=== PATIENT | male | born 1985 | race Caucasian/White ===

== ENCOUNTER 2016-12-20 16:36 | Inpatient (IN) | payer BC, OTHER ==
[~2016-12-20] VITALS: Ht 185.4 cm; Wt 71.2 kg
[2016-12-21] MEDS ORDERED: diphenhydrAMINE 50 MG CAPSULE PO PRN (00:30)
[2016-12-21] MEDS ORDERED: CLONIDINE HCL 0.1 MG TABLET PO PRN (00:30)
[2016-12-21] MEDS ORDERED: MIRALAX 17 GM POWD.PACK PO PRN (00:30)
[2016-12-21] MEDS ORDERED: ONDANSETRON ODT 4 MG TAB.RAPDIS SL PRN (00:30)
[2016-12-21] MEDS ORDERED: ONDANSETRON 4 MG/2 ML VIAL IM PRN (00:30)
[2016-12-21] MEDS ORDERED: HYDROXYZINE PAMOATE 25 MG CAPSULE PO PRN (00:30)
[2016-12-21] MEDS ORDERED: BUPRENORPHINE HCL 2 MG TAB.SUBL SL PRN (00:30)
[2016-12-21] MEDS ORDERED: ACETAMINOPHEN 325 MG TABLET PO PRN (00:30)
[2016-12-21] MEDS ORDERED: DICYCLOMINE HCL 20 MG TABLET PO PRN (00:30)
[2016-12-21] MEDS ORDERED: LOPERAMIDE HCL 2 MG CAPSULE PO PRN ×2 (00:30)
[2016-12-21] MEDS ORDERED: MAG HYDROX/AL HYDROX/SIMETH 30 ML LIQUID UDC PO PRN (00:30)
[2016-12-21] MEDS ORDERED: [UNRECOGNIZED DRUG - OTHER] PO (01:28)
[2016-12-21] MEDS ORDERED: ASCO-382 PO (01:28)
[2016-12-21] MEDS ORDERED: OMEG-11 PO (01:28)
[2016-12-21] MEDS ORDERED: CHOL500062 PO (01:28)
[2016-12-21] MEDS ORDERED: [UNRECOGNIZED DRUG - CODE] PO (01:28)
--- NOTE | 2016-12-21 01:40 | NUR ---
PRE-ADMISSION NOTE : Pt. is 31 years old came to [facility] for Heroin, Methamphetamine, Xanax dependency. Pt. reports Haldol allergy, is on Regular diet, Full Code; Pt. was able to provide urine drug screen in Intake Office. VITAL SIGNS : CY=495/77, HR=92/min, Temp=98.0, RR=16 , breathing unlabored and even, SpO2=98% with RA, COWS=9, CIWA=15, Bznepl=[id number], Height=61. Pt. complains of increased level of anxiety= 4/10, confirms audio and visual hallucination, No SI/HI at this moment., Skin is dry, warm and intact, last BM on 12/20/2016. Pt. also was evaluated by Torey, Charge Nurse and will be accepted to the Unit.
[2016-12-21] MEDS ORDERED: SULF1TAB48 PO (01:42)
[2016-12-21] MEDS ORDERED: SAW/1TAB2 PO (01:42)
[2016-12-21] MEDS ORDERED: TURM1POW PO (01:42)
[2016-12-21] MEDS ORDERED: MEGA B COMPLEX (01:42)
[2016-12-21] MEDS ORDERED: [UNRECOGNIZED DRUG - OTHER] PO (01:42)
[2016-12-21] MEDS ORDERED: [UNRECOGNIZED DRUG - CODE] TP (01:42)
[2016-12-21] MEDS ORDERED: LYSI100013 PO (01:42)
[2016-12-21] MEDS: LORAZEPAM 1 MG TABLET PO PRN ×2 (02:00→06:11)
--- NOTE | 2016-12-21 02:00 | NUR ---
PRN ATIVAN Pt.s CIWA=15. PRN ATIVAN given as ordered. Safety measures in place : bed on lowest position with side rails x2 up for safety, call light within reach. Will continue to monitor closely and offer help.
[2016-12-21] MEDS ORDERED: LORAZEPAM 1 MG TABLET ONE ×2 (02:10→06:20)
--- NOTE | 2016-12-21 02:35 | NUR ---
ADMISSION NOTE : Pt. is 31 years old male admitted on 12/21/2016 at 01:45 for Heroin, Methamphetamine, Xanax dependency. Pt. reports no Primary Care Provider at this moment, Haldol allergy, is on Regular diet, Full Code; Pt. was able to provide urine drug screen in Intake Office. Pt. stated to be in assisted x10, arrested x15 in the past, no hospitalizations within past 30 days, history of falls within past 12 months. Pt. is oriented to the unit and his room, encouraged to notify staff with any concerns. Home medication reconciled. Upon admission YW=199/77, HR=92/min, Temp=98.0, RR=16 , breathing unlabored and even, SpO2=98% with RA, COWS=9, CIWA=15, one time order Ativan 2mg given as ordered. Rtodqc=[id number], Height=61. Pt. complains of increased level of anxiety= 4/10, confirms audio and visual hallucination, No SI/HI at this moment., Skin is dry, warm and intact, last BM on 12/20/2016. Education provided on Hep.C, Drugs overdose, seizures, smoking. Safety measures in place : bed on lowest position with side rails x2 up for safety, call light within reach. Will continue to monitor closely and offer help. Substance Abuse History is as follow : 1.Heroin 2gm QD IV last 4 months, last dose used on 12/20/2016, using Heroin since 1999. 2.Methamphetamine 3gm smoking/last 3 months, last dose on 12/20/2016, using since 2013. 3.Xanax 4mg QD PO last 5 months, last use on 12/16/2016. Using Xanax since 2001. 4.Tobacco 10 cigarettes QD since 2001, last use on 12/20/2016 Pt. occasionally takes Temazepam as substitute for Xanax. Pt. occasionally smokes Marijuana x1-2/week. Past Medical History : Multiple visual and audio hallucinations , multiple psychoses, Anxiety, Depression, Panic Disorder, Bipolar, passive SI , seizures history , was in [facility] in 2009, see PC notes (pt. explains his seizures convulsions because of low blood pressure ). 1990- left elbow fracture 1992- right elbow fracture 2002- right par ocular skull fracture Tx History : x12 Detox. facilities x6 Rehab. Facilities Family History : ETOH abuse - mother and sister. Cocaine, PCP, Ecstasy abuse - sister
--- NOTE | 2016-12-21 03:00 | NUR ---
REASSESSMENT ATSHAI Pt. is able to rest quietly in his room , RR=16 unlabored and even. Safety measures in place : bed on lowest position with side rails x2 up for safety, call light within reach. Will continue to monitor closely and offer help.
[2016-12-21 03:20] LABS: *AMPHETAMINE, URINE POSITIVE (NEGATIVE); *BARBITURATE, URINE NEGATIVE (NEGATIVE); *CANNABINOID, URINE POSITIVE (NEGATIVE); *COCCAINE, URINE NEGATIVE (NEGATIVE); *OPIATE, URINE POSITIVE (NEGATIVE); *PHENCYCLIDINE SCREEN,URINE NEGATIVE (NEGATIVE)
[2016-12-21 04:00] VITALS: BP 110/78
--- NOTE | 2016-12-21 06:33 | NUR ---
END OF SHIFT NOTE : Pt. is 31 years old male admitted on 12/21/2016 at 01:45 for Heroin, Methamphetamine, Xanax dependency. Pt. reports no Primary Care Provider at this moment, Haldol allergy, is on Regular diet, Full Code. Past Medical History : Multiple visual and audio hallucinations , multiple psychoses, Anxiety, Depression, Panic Disorder, Bipolar, passive SI , seizures history , was in [facility] in 2009, see PC notes (pt. explains his seizures convulsions because of low blood pressure ) ,1990- left elbow fracture , 1992- right elbow fracture , 2002- right par ocular skull fracture. Pt. complains of increased level of anxiety= 4/10, confirms audio and visual hallucination, No SI/HI at this moment. Pt remains compliant with the treatment plan. PRN ATIVAN given during my shift. V/S remain WNL. RR=16, even and unlabored, lungs clear upon auscultation, abdomen soft and non- distended. Pt denies nausea, vomiting and diarrhea. LAST CIWA= 15 ,COWS= 9 at 0400 , SEFKXV=137 ml, voided x1 , slept 0 hours. Safety measures in place : bed on lowest position with side rails x2 up for safety, call light within reach. Will continue to monitor closely and offer help.
[2016-12-21 07:00] LABS: BASOPHILS % (AUTO) 0.6 % (0.0-2.0); EOSINOPHILS # (AUTO) 0.1 K/uL (0.0-0.7); EOSINOPHILS % (AUTO) 1.4 % (0.0-7.0); HEMATOCRIT 38.9 % (40-50); HEMOGLOBIN 13.1 G/DL (14.0-18.0); LYMPHOCYTES # (AUTO) 2.1 K/UL (0.8-4.8); LYMPHOCYTES % (AUTO) 28.9 % (20.5-51.5); MEAN CORPUSCULAR HEMOGLOBIN 29.7 UUG (27.0-31.0); MEAN CORPUSCULAR HGB CONC 34 g/dL (32.0-37.0); MEAN CORPUSCULAR VOLUME 88.5 FL (82.0-92.0); MONOCYTES # (AUTO) 0.8 K/UL (0.1-1.30); MONOCYTES % (AUTO) 10.6 % (0.0-11.0); NEUTROPHILS # (AUTO) 4.2 K/UL (1.8-8.9); NEUTROPHILS % (AUTO) 58.5 % (38.5-71.5); PLATELET COUNT (AUTO) 277 K/UL (150-450); WHITE BLOOD COUNT (AUTO) 7.2 K/UL (4.0-11.2)
[2016-12-21 07:16] LABS: BILIRUBIN,TOTAL 0.3 mg/dL (0.2-1.0); CREATININE 1.1 mg/dL (0.6-1.3); MAGNESIUM 1.7 mg/dL (1.8-2.4); POTASSIUM 4.5 mmol/L (3.5-5.1); TOTAL PROTEIN, SERUM 7.4 g/dL (6.4-8.2)
[2016-12-21 08:00] VITALS: BP 124/77
--- NOTE | 2016-12-21 08:10 | NUR ---
START OF SHIFT NOTE Received patient this morning AOx4. No taper ordered yet. patient on PRNs only for now. PRN Ativan x2 given by night nurse. Patient c/o auditory and visual hallucinations, anxiety, tremors, body aches, stomach cramps. COWS 15 CIWA 9. MD notified. Encouraged patient to increase fluid intake. Encouraged patient to rest during shift. Encouraged pt to notify RN if S/S of W/D worsen. Will closely monitor and offer help.
[2016-12-21] MEDS: MULTIVITAMINS,THERAPEUTIC TABLET PO SCH (08:34)
[2016-12-21] MEDS: METHOCARBAMOL 750 MG TABLET PO PRN (08:34)
--- NOTE | 2016-12-21 08:35 | NUR ---
PRN MEDICATIONS BENTYL, CLONIDINE, ROBAXIN GIVEN TO HELP MANAGE S/S OF W/D. PATIENT COMPLAINING OF ANXIETY, STOMACH CRAMPS AND BODY ACHES 09/17. WILL REASSESS
--- NOTE | 2016-12-21 08:48 | NUR ---
NOTIFIED MD AND PSYCH OF PATIENT CONDITION. NO NEW ORDERS AT THIS TIME.
--- NOTE | 2016-12-21 08:49 | NUR ---
1:1 ordered per MD for safety measures. sitter at bedside. pt denies S/I or H/I.
[2016-12-21] MEDS: VALPROIC ACID 250 MG/5 ML LIQUID UDC PO SCH ×2 (09:30→21:40)
[2016-12-21] MEDS: chlorproMAZINE 25 MG TABLET PO SCH ×2 (09:30→17:00)
--- NOTE | 2016-12-21 09:30 | NUR ---
PRN REASSESSMENT patient reports body aches are 0/10 and his stomach cramps are gone. he still presents anxious. sitter at bedside.will monitor.
[2016-12-21] MEDS ORDERED: LORAZEPAM 1 MG TABLET PO PRN ×2 (10:15)
[2016-12-21] MEDS ORDERED: LORAZEPAM 2 MG/1 ML VIAL IM PRN (10:15)
--- NOTE | 2016-12-21 11:55 | NUR ---
CRISIS TEAM COMMUNICATION Spoke with Heide Johnson (crisis team splicing supervisor RN). Pt is having auditory and visual hallucinations yet refuses all psych meds. Pt denies SI/HI. Dr. Cotto and Dr. Stockton agree that a crisis evaluation is appropriate at this time. Pt remains on a 1:1, Heide Solomon .to come in an hr.
[2016-12-21 12:00] VITALS: BP 150/75
[2016-12-21] MEDS ORDERED: chlorproMAZINE 25 MG TABLET PO ONE ×2 (12:15→14:30)
--- NOTE | 2016-12-21 12:15 | NUR ---
PRN ADMINISTRATION 2 MG ATIVAN GIVEN FOR CIWA 19. WILL REASSESS
--- NOTE | 2016-12-21 12:20 | NUR ---
PATIENT TAKEN OFF 1:[address] ASHTON. PT DENIES S/I OR H/I.
--- NOTE | 2016-12-21 13:10 | NUR ---
PRN REASSESSMENT CIWA DECREASED TO 14. WILL MONITOR CLOSELY. NO DISTRESS NOTED.
[2016-12-21] MEDS ORDERED: DIAZEPAM 5 MG TABLET PO PRN (14:00)
[2016-12-21] MEDS ORDERED: DIAZEPAM 10 MG TABLET PO PRN ×2 (14:00)
[2016-12-21] MEDS ORDERED: MAGNESIUM OXIDE 400 MG TABLET PO ONE (15:00)
[2016-12-21] MEDS: DIAZEPAM 10 MG TABLET PO SCH ×2 (15:14→21:40)
[2016-12-21 16:00] VITALS: BP 93/56
--- NOTE | 2016-12-21 17:29 | NUR ---
1600 COWS/CIWA DEFERRED D/T ORDER BEING WHILE AWAKE. RR EVEN AND UNLABORED. CALL NGUYEN WITHIN REACH. NO DISTRESS NOTED.
--- NOTE | 2016-12-21 18:40 | NUR ---
END OF SHIFT REPORT Patient started on 5 day Valium this shift and is to start 4 day Subutex taper tomorrow 12/22. Patient was given PRN Bentyl, Clonidine, Robaxin, Ativan during shift. Patient reported auditory and visual hallucinations during shift with MD and Psych aware. Pt denies suicidal or homicidal ideations at this time. 1600 COWS/CIWA deferred d/t patient being asleep the second half of shift. RR even and unlabored. Vital signs stable. Last COWS 11 CIWA 14. All safety measures in place. All needs have been met. Will endorse to night nurse.
--- NOTE | 2016-12-21 19:15 | NUR ---
START OF SHIFT NOTE : Pt. is 31 years old male admitted on 12/21/2016 at 01:45 for Heroin, Methamphetamine, Xanax dependency. Pt. reports no Primary Care Provider at this moment, Haldol allergy, is on Regular diet, Full Code. Past Medical History : Multiple visual and audio hallucinations , multiple psychoses, Anxiety, Depression, Panic Disorder, Bipolar, passive SI , seizures history , was in [facility] in 2009, see PC notes (pt. explains his seizures convulsions because of low blood pressure ) . Pt. complains of increased level of anxiety. No SI/HI at this moment. Pt remains compliant with the treatment plan. V/S remain WNL. RR=16, even and unlabored, lungs clear upon auscultation, abdomen soft and non- distended. Pt denies nausea, vomiting and diarrhea. LAST CIWA= 14 ,COWS= 11 at 1600 .Pt. have seen walking in the unit, then went to his room for resting. Safety measures in place : bed on lowest position with side rails x2 up for safety, call light within reach. Will continue to monitor closely and offer help.
[2016-12-21 20:00] VITALS: BP 90/61
[2016-12-21] MEDS: GABAPENTIN 300 MG CAPSULE PO SCH (21:40)
[2016-12-22 04:00] VITALS: BP 119/97
--- NOTE | 2016-12-22 06:42 | NUR ---
END OF SHIFT NOTE : Pt. is 31 years old male admitted on 12/21/2016 at 01:45 for Heroin, Methamphetamine, Xanax dependency. Pt. reports no Primary Care Provider at this moment, Haldol allergy, is on Regular diet, Full Code. Past Medical History : Multiple visual and audio hallucinations , multiple psychoses, Anxiety, Depression, Panic Disorder, Bipolar, passive SI , seizures history , was in [facility] in 2009, see PC notes (pt. explains his seizures convulsions because of low blood pressure ) . Pt. complains of increased level of anxiety. No SI/HI at this moment. Pt remains compliant with the treatment plan. V/S remain WNL. RR=16, even and unlabored, lungs clear upon auscultation, abdomen soft and non- distended. Pt denies nausea, vomiting and diarrhea. LAST CIWA= 14 ,COWS= 11 at 1600 .Pt. have seen walking in the unit, then went to his room for resting. Pt remains compliant with the treatment plan. No PRNs were given during my shift. V/S remain WNL. RR=16, even and unlabored, lungs clear upon auscultation, abdomen soft and non- distended. Pt denies nausea, vomiting and diarrhea. LAST CIWA=6 ,COWS=5 at 0400 , YUUSFN=953 ml, voided x2 , slept 8 hours. Safety measures in place : bed on lowest position with side rails x2 up for safety, call light within reach. Will continue to monitor closely and offer help.
--- NOTE | 2016-12-22 07:40 | NUR ---
START OF SHIFT NOTE Received report from night nurse, 31 years old male admitted for Heroin, Methamphetamine, Xanax dependency. Pt reported allergic to Haldol, On Regular diet, Full Code. Pt reported PMH of Multiple visual and audio hallucinations, multiple psychoses, Anxiety, Depression, Panic Disorder, Bipolar, passive SI , seizures history. Per night nurse pt did not receive any PRN, slept for 8 hours, Last CIWA-6, COWS-5. Received pt in his room resting no s/s of distress noted. Breathing normal no SOB noted. Skin intact warm and dry to touch. All safety measures in place, Call light within reach. Will con to monitor.
[2016-12-22 08:00] VITALS: BP 118/76
[2016-12-22] MEDS: DIAZEPAM 10 MG TABLET PO SCH ×3 (08:18→21:38)
[2016-12-22] MEDS: GABAPENTIN 300 MG CAPSULE PO SCH ×2 (08:18→21:38)
[2016-12-22] MEDS: MULTIVITAMINS,THERAPEUTIC TABLET PO SCH (08:18)
[2016-12-22] MEDS: chlorproMAZINE 25 MG TABLET PO SCH ×2 (08:18→16:07)
[2016-12-22] MEDS: BUPRENORPHINE HCL 2 MG TAB.SUBL SL SCH ×3 (08:19→21:38)
[2016-12-22] MEDS: VALPROIC ACID 250 MG/5 ML LIQUID UDC PO SCH ×2 (08:19→21:39)
[2016-12-22] MEDS ORDERED: TUBERCULIN,PURIF.PROT.DERIV. 5 TU/0.1 ML TEST ID ONE (09:00)
[2016-12-22 10:10] LABS: HEPATITIS B SURFACE AG Negative (Negative)
[2016-12-22 12:00] VITALS: BP 139/83
[2016-12-22] MEDS ORDERED: BUPRENORPHINE HCL 2 MG TAB.SUBL SL ONE (12:00)
[2016-12-22 16:00] VITALS: BP 103/60
--- NOTE | 2016-12-22 19:07 | NUR ---
END OF SHIFT NOTE Pt cont with Valium taper and Started on Subutex taper today tolerated well. Pt did not receive any PRN medication during shift. Pt denies any auditory and visual hallucinations. Pt denies any SI/HI. Vital signs remained WNL. During shift pt received x1 dose of Subutex 2mg. Pt remained compliant with plan of care. Encourage Po fluids as tolerated. Last CIWA-7, COWS-7. All needs attended. Safety measures in place, Call light within reach. Pt endorsed to night nurse in stable condition.
--- NOTE | 2016-12-22 19:15 | NUR ---
START OF SHIFT NOTE : Pt. is 31 years old male admitted on 12/21/2016 at 01:45 for Heroin, Methamphetamine, Xanax dependency. Pt. reports no Primary Care Provider at this moment, Haldol allergy, is on Regular diet, Full Code. Past Medical History : Multiple visual and audio hallucinations , multiple psychoses, Anxiety, Depression, Panic Disorder, Bipolar, passive SI , seizures history , was in [facility] in 2009, see PC notes (pt. explains his seizures convulsions because of low blood pressure ) . Pt. complains of increased level of anxiety. No SI/HI at this moment. Pt remains compliant with the treatment plan. V/S remain WNL. RR=16, even and unlabored, lungs clear upon auscultation, abdomen soft and non- distended. Pt denies any auditory and visual hallucinations. Pt denies nausea, vomiting and diarrhea. LAST CIWA= 7 ,COWS= 7 at 1600 .Pt. have seen walking in the unit, then went to his room for resting. Safety measures in place : bed on lowest position with side rails x2 up for safety, call light within reach. Will continue to monitor closely and offer help.
[2016-12-22 20:00] VITALS: BP 125/76
[2016-12-23 04:00] VITALS: BP 114/73
--- NOTE | 2016-12-23 06:34 | NUR ---
END OF SHIFT NOTE : Pt. is 31 years old male admitted on 12/21/2016 at 01:45 for Heroin, Methamphetamine, Xanax dependency. Pt. reports no Primary Care Provider at this moment, Haldol allergy, is on Regular diet, Full Code. Past Medical History : Multiple visual and audio hallucinations , multiple psychoses, Anxiety, Depression, Panic Disorder, Bipolar, passive SI , seizures history , was in [facility] in 2009, see PC notes (pt. explains his seizures convulsions because of low blood pressure ) . Pt. complains of increased level of anxiety. No SI/HI at this moment. Pt remains compliant with the treatment plan. V/S remain WNL. RR=16, even and unlabored, lungs clear upon auscultation, abdomen soft and non- distended. Pt denies any auditory and visual hallucinations. Pt denies nausea, vomiting and diarrhea. Pt remains compliant with the treatment plan. No PRNs were given during my shift. V/S remain WNL. RR=16, even and unlabored, lungs clear upon auscultation, abdomen soft and non- distended. Pt denies nausea, vomiting and diarrhea. LAST CIWA=5 ,COWS=6 at 0400 , INTAKE= 50 ml, voided x 1, slept 11 hours. Safety measures in place : bed on lowest position with side rails x2 up for safety, call light within reach. Will continue to monitor closely and offer help.
[2016-12-23] MEDS: IBUPROFEN 600 MG TABLET PO PRN (07:24)
[2016-12-23] MEDS: METHOCARBAMOL 750 MG TABLET PO PRN (07:24)
--- NOTE | 2016-12-23 07:24 | NUR ---
START OF SHIFT NOTE Received report from night nurse, 31 years old male admitted for Heroin, Methamphetamine, Xanax dependency. Pt reported allergic to Haldol, On Regular diet, Full Code. Pt reported PMH of Multiple visual and audio hallucinations, multiple psychoses, Anxiety, Depression, Panic Disorder, Bipolar, passive SI , seizures history. Per night nurse pt did not receive any PRN, slept for 11 hours, Last CIWA-5, COWS-6. Received pt in his room c/o of lower back pain 5/10 and muscle spasms. Administered PRN Motrin 600mg Po, Robaxin 750mg Po as ordered. Will cont to monitor and reassess. All safety measures in place, Call light within reach.
[2016-12-23 08:00] VITALS: BP 117/64
[2016-12-23] MEDS: GABAPENTIN 300 MG CAPSULE PO SCH ×3 (08:22→20:25)
[2016-12-23] MEDS: chlorproMAZINE 25 MG TABLET PO SCH ×2 (08:22→17:30)
[2016-12-23] MEDS: VALPROIC ACID 250 MG/5 ML LIQUID UDC PO SCH (08:22)
[2016-12-23] MEDS: MULTIVITAMINS,THERAPEUTIC TABLET PO SCH (08:22)
[2016-12-23] MEDS: DIAZEPAM 5 MG TABLET PO SCH ×4 (08:22→20:25)
--- NOTE | 2016-12-23 08:22 | NUR ---
DEPAKENE REFUSED Pt refused Depakene offered x3 risk and benefits explained, pt still refused. notified.
--- NOTE | 2016-12-23 08:24 | NUR ---
REASSESSMENT Upon reassessment pt reported medication effective, pain decreased to 1/10 and muscle spasms subsided.
[2016-12-23] MEDS ORDERED: BUPRENORPHINE HCL 2 MG TAB.SUBL SL SCH (09:00)
[2016-12-23] MEDS ORDERED: KETOROLAC TROMETHAMINE 30 MG INJ IM PRN (11:15)
[2016-12-23 12:00] VITALS: BP 102/65
[2016-12-23] MEDS: BACLOFEN 10 MG TABLET PO SCH ×2 (14:39→20:25)
[2016-12-23] MEDS: BUPRENORPHINE HCL 2 MG TAB.SUBL SL SCH ×2 (14:39→20:25)
[2016-12-23 16:00] VITALS: BP 131/72
--- NOTE | 2016-12-23 19:00 | NUR ---
END OF SHIFT NOTE Pt is alert oriented x4. Pt cont with Valium taper Subutex taper tolerated well. Pt did not receive any PRN medication during shift. Pt denies any auditory and visual hallucinations. Pt denies any SI/HI. Vital signs remained WNL. Pt remained compliant with plan of care. Encourage Po fluids as tolerated. Last CIWA-7, COWS-7. Pt rested in bed most of shift and isolated self from peers. He did not attend groups and activities. All needs attended. Safety measures in place, Call light within reach. Pt endorsed to night nurse in stable condition.
--- NOTE | 2016-12-23 19:15 | NUR ---
START OF SHIFT NOTE : Pt. is 31 years old male admitted on 12/21/2016 at 01:45 for Heroin, Methamphetamine, Xanax dependency. Pt. reports no Primary Care Provider at this moment, Haldol allergy, is on Regular diet, Full Code. Past Medical History : Multiple visual and audio hallucinations , multiple psychoses, Anxiety, Depression, Panic Disorder, Bipolar, passive SI , seizures history , was in [facility] in 2009, see PC notes (pt. explains his seizures convulsions because of low blood pressure ) . Pt. complains of increased level of anxiety. No SI/HI at this moment. Pt remains compliant with the treatment plan. V/S remain WNL. RR=16, even and unlabored, lungs clear upon auscultation, abdomen soft and non- distended. Pt denies any auditory and visual hallucinations. Pt denies nausea, vomiting and diarrhea. LAST CIWA=4 ,COWS=4 at 1600 .Pt. have seen walking in the unit, then went to his room for resting. Safety measures in place : bed on lowest position with side rails x2 up for safety, call light within reach. Will continue to monitor closely and offer help.
[2016-12-23 20:00] VITALS: BP 122/73
[2016-12-24 04:00] VITALS: BP 141/85
--- NOTE | 2016-12-24 06:48 | NUR ---
END OF SHIFT NOTE : Pt. is 31 years old male admitted on 12/21/2016 at 01:45 for Heroin, Methamphetamine, Xanax dependency. Pt. reports no Primary Care Provider at this moment, Haldol allergy, is on Regular diet, Full Code. Past Medical History : Multiple visual and audio hallucinations , multiple psychoses, Anxiety, Depression, Panic Disorder, Bipolar, passive SI , seizures history , was in [facility] in 2009, see PC notes (pt. explains his seizures convulsions because of low blood pressure ) . Pt. complains of increased level of anxiety. No SI/HI at this moment. Pt remains compliant with the treatment plan. No PRNs were given during my shift. V/S remain WNL. RR=16, even and unlabored, lungs clear upon auscultation, abdomen soft and non- distended. Pt denies nausea, vomiting and diarrhea. LAST CIWA=4 ,COWS= 4 at 0400 , DFLDYI=613 ml, voided x1 , slept 11 hours. Safety measures in place : bed on lowest position with side rails x2 up for safety, call light within reach. Will continue to monitor closely and offer help.
--- NOTE | 2016-12-24 07:30 | NUR ---
START OF SHIFT NOTE Received report from night nurse, 31 years old male admitted for Heroin, Methamphetamine, Xanax dependency. Pt reported allergic to Haldol, On Regular diet, Full Code. Pt reported PMH of Multiple visual and audio hallucinations, multiple psychoses, Anxiety, Depression, Panic Disorder, Bipolar, passive SI , seizures history. Per night nurse pt did not receive any PRN, slept for 11 hours, Last CIWA-4, COWS-4. Received pt in his room alert oriented x4 no s/s of distress noted. Breathing normal no SOB noted. Skin intact warm and dry to touch. All safety measures in place, Call light within reach. Will cont to monitor.
[2016-12-24 08:00] VITALS: BP 105/64
[2016-12-24] MEDS: chlorproMAZINE 25 MG TABLET PO SCH ×2 (08:36→16:05)
[2016-12-24] MEDS: BACLOFEN 10 MG TABLET PO SCH (08:37)
[2016-12-24] MEDS: GABAPENTIN 300 MG CAPSULE PO SCH (08:37)
[2016-12-24] MEDS: DIAZEPAM 5 MG TABLET PO SCH ×3 (08:37→20:57)
[2016-12-24] MEDS: MULTIVITAMINS,THERAPEUTIC TABLET PO SCH (08:37)
[2016-12-24] MEDS: BUPRENORPHINE HCL 2 MG TAB.SUBL SL SCH ×3 (08:37→20:58)
[2016-12-24 12:00] VITALS: BP 120/67
--- NOTE | 2016-12-24 12:30 | NUR ---
Therapist prompted client to attend daily group therapy sessions. Client stated "Thank you, I will attend if I am able to."
[2016-12-24] MEDS ORDERED: BUPRENORPHINE HCL 2 MG TAB.SUBL SL ONE (13:30)
[2016-12-24] MEDS: BACLOFEN 20 MG TABLET PO SCH ×2 (15:45→21:17)
[2016-12-24] MEDS: GABAPENTIN 400 MG CAPSULE PO SCH ×2 (15:45→20:55)
[2016-12-24 16:00] VITALS: BP 115/66
--- NOTE | 2016-12-24 19:00 | NUR ---
END OF SHIFT NOTE Pt is alert oriented x4. Pt cont with Valium taper Subutex taper tolerated well. Pt did not receive any PRN medication during shift. Pt denies any auditory and visual hallucinations. Pt denies any SI/HI. Vital signs remained WNL. Pt received x1 dose of Subutex 2mg for COWS score 11 noted effective with evidence low COWS score noted-6. Pt remained compliant with plan of care. Encourage Po fluids as tolerated. Last CIWA-6, COWS-6. Pt rested in bed most of shift and isolated self from peers. He did not attend groups and activities. All needs attended. Safety measures in place, Call light within reach. Pt endorsed to night nurse in stable condition.
--- NOTE | 2016-12-24 19:45 | NUR ---
Start of shift report: Rec'd patient resting in bed with eyes closed. No signs of distress. Afebrile and vital signs are stable. Patient has Valium taper and Subutex taper in progress. Patient's COWS score is 6/ CIWA score is 6. Patient encouraged to increased fluids intake to help facilitate the detox process. Reviewed current plan of care. Safety measures in place. Bed is in the lowest position, side rails are up and call light within reach. Will continue to monitor closely.
[2016-12-24 20:30] VITALS: BP 97/63
[2016-12-24] MEDS: CLONIDINE HCL 0.1 MG TABLET PO SCH (20:57)
[2016-12-25 00:25] VITALS: BP 107/64
[2016-12-25 04:19] VITALS: BP 105/69
--- NOTE | 2016-12-25 06:52 | NUR ---
EOS report: Patient had a uneventful night. Afebrile and vital signs are stable. Patient was admitted for Heroin, Meth and Xanax dependence. Placed on a Valium/Subutex taper and tolerating well. No signs of withdrawal or hallucination. Patient's COWS score is 6 and CIWA score is 5. Patient slept 10.5 hrs last night. Patient did not leave his room or interact with staff. No other concerns at this time. All needs were met. Safety precaution maintained. Will endorse to oncoming shift to follow up care.
--- NOTE | 2016-12-25 07:22 | NUR ---
Start of Shift Endorsement received from nightshift nurse. PT is a 31 y/o male admitted for Heroin, Meth and Xanax dependence. Pt has been placed on a 5 day Valium and 4 day Subutex taper. Pt has Hx of Anxiety, Bipolar and HepC. Pt is moderately withdrawing at this time AEB CIWA 5, COWS 6 and reports sleeping 11 hours. PT reports feeling rested and wants to participate in groups and activities. VS WNL, Full Code. . PT is alert and oriented x4. Pt is in STABLE condition at this time. Remains compliant with medication and diet regimen. All needs have been met, All safety measures in place per hospital policy. Bed in lowest position, side rails up x2, call-light within reach. Will continue to monitor
[2016-12-25 08:00] VITALS: BP 121/71
[2016-12-25] MEDS: chlorproMAZINE 25 MG TABLET PO SCH ×2 (09:00→17:00)
[2016-12-25] MEDS: GABAPENTIN 400 MG CAPSULE PO SCH ×3 (09:03→20:29)
[2016-12-25] MEDS: CLONIDINE HCL 0.1 MG TABLET PO SCH ×2 (09:03→20:29)
[2016-12-25] MEDS: BUPRENORPHINE HCL 2 MG TAB.SUBL SL SCH ×2 (09:04→20:29)
[2016-12-25] MEDS: DIAZEPAM 5 MG TABLET PO SCH ×2 (09:04→20:29)
[2016-12-25] MEDS: BACLOFEN 20 MG TABLET PO SCH ×3 (09:04→20:29)
[2016-12-25] MEDS: MULTIVITAMINS,THERAPEUTIC TABLET PO SCH (09:04)
[2016-12-25 12:00] VITALS: BP 99/62
[2016-12-25] MEDS ORDERED: METHYL SALICYLATE/MENTHOL CREAM 28 GM TUBE TOP PRN (15:00)
[2016-12-25 16:00] VITALS: BP 100/67
--- NOTE | 2016-12-25 19:08 | NUR ---
End of Shift Endorsement given to nightshift nurse. PT is a 31 y/o male admitted for Heroin, Meth and Xanax dependence. Pt has been placed on a 5 day Valium and 4 day Subutex taper. Pt has Hx of Anxiety, Bipolar and HepC. Pt is moderately withdrawing at this time AEB CIWA 4, COWS 6. PT refused Thorazine x2 reporting it makes him feel like a "zombie". PT participated in groups and activities. Educated pt on S/E of medications and diet regimen. Intake: 2330ml, Void x3, BM x1. VS WNL, Full Code. . PT is alert and oriented x4. Pt is in STABLE condition at this time. Remains compliant with medication and diet regimen. All needs have been met, All safety measures in place per hospital policy. Bed in lowest position, side rails up x2, call-light within reach. Will continue to monitor
--- NOTE | 2016-12-25 19:50 | NUR ---
Start of shift report: Rec'd patient resting in bed with eyes closed. No signs of distress. Afebrile and vital signs are stable. Patient has Valium taper and Subutex taper in progress. Patient's COWS score is 6/ CIWA score is 4. Will continue with current plan of care. Patient is on room restriction. Patient encouraged to increased fluids intake to help facilitate the detox process. Safety measures in place. Bed is in the lowest position, side rails are up and call light within reach. Will continue to monitor closely.
[2016-12-25 20:09] VITALS: BP 114/61
[2016-12-25] MEDS: IBUPROFEN 600 MG TABLET PO PRN (21:43)
--- NOTE | 2016-12-25 21:43 | NUR ---
PRN Medication: Patient c/o generalized body pain @ 12/18. Medicated with Motrin per request. Patient tolerated well. Will continue to monitor closely.
--- NOTE | 2016-12-25 22:43 | NUR ---
Jarret Reassessment: Patient resting quietly with eyes closed. No signs of pain or discomfort. Will continue to monitor closely.
[2016-12-26] VITALS (7 sets, daily range): BP systolic 104–131; BP diastolic 50–77
--- NOTE | 2016-12-26 06:38 | NUR ---
EOS report: Patient had a uneventful night. Afebrile and vital signs are stable. Patient was admitted for Heroin, Meth and Xanax dependence. Placed on a Valium/Subutex taper and tolerating well. No signs of withdrawal or hallucination. Patient's COWS score is 5 and CIWA score is 3. Patient slept 8 hrs last night. Patient is still on room restriction. Patient did leave the room once to smoke. No other concerns at this time. All needs were met. Safety precaution maintained. Bed was kept in the lowest position, side rails are up and call light within reach. Will endorse to oncoming shift to follow up care.
--- NOTE | 2016-12-26 07:24 | NUR ---
START OF SHIFT Received report from night nurse, 31 year old male patient admitted on 12/21/16 for medically supervised withdrawals from heroin, methamphetamine, xanax, and occasional marijuana use. Pt has been compliant with 5 day Valium and 4 day Subutex taper. Reports medical hx of Hepatitis C, anxiety and bipolar. Pt has had hx of psychosis. PRN Motrin was administered and effective. Pt slept for 8 hours. Most recent COWS are 5 and CIWA 3. Pt is sleeping in bed at this time, all needs met. Safety measures are in place, will continue to monitor.
[2016-12-26] MEDS: chlorproMAZINE 25 MG TABLET PO SCH ×2 (08:43→17:00)
[2016-12-26] MEDS: CLONIDINE HCL 0.1 MG TABLET PO SCH ×4 (08:43→20:52)
[2016-12-26] MEDS: GABAPENTIN 400 MG CAPSULE PO SCH (08:43)
[2016-12-26] MEDS: BACLOFEN 20 MG TABLET PO SCH ×4 (08:43→20:51)
[2016-12-26] MEDS: MULTIVITAMINS,THERAPEUTIC TABLET PO SCH (08:43)
[2016-12-26] MEDS ORDERED: BUPRENORPHINE HCL 2 MG TAB.SUBL SL SCH (09:00)
[2016-12-26] MEDS ORDERED: IBUPROFEN 800 MG TABLET PO PRN (11:30)
[2016-12-26] MEDS ORDERED: DICY20TA28 PO (12:12)
[2016-12-26] MEDS ORDERED: BACL20TA PO (12:12)
[2016-12-26] MEDS ORDERED: CLON0.1T14 PO (12:12)
[2016-12-26] MEDS ORDERED: HYDR-3895 PO (12:12)
[2016-12-26] MEDS ORDERED: IBUP-1957 PO (12:12)
[2016-12-26] MEDS ORDERED: CHLO25TA13 PO (12:12)
[2016-12-26] MEDS ORDERED: GABA-534 PO (12:12)
[2016-12-26] MEDS ORDERED: DIPH50CA37 PO (12:12)
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
--- NOTE | 2016-12-26 13:39 | NUR ---
REASSESSMENT Pt denies pain at this time and stated that Ibuprofen was effective.
[2016-12-26] MEDS: GABAPENTIN 300 MG CAPSULE PO SCH ×3 (15:00→20:52)
--- NOTE | 2016-12-26 15:57 | NUR ---
1500 REFUSAL OF MEDS Pt refused Clonidine, Baclofen and Neurontin, pt is resting in bed and stated he wants to continue to sleep and does not want the medications at this time. Will continue to monitor closely. Addendum: 12/26/16 at 1633 by ARTURO YUSUF RN Pt agrees to take medications at this time.
--- NOTE | 2016-12-26 16:33 | NUR ---
1500 MEDS ADMINISTERED Pt requests to take 1500 medications that he refused earlier, ordered medications administered.
--- NOTE | 2016-12-26 18:56 | NUR ---
END OF SHIFT Endorsed to night nurse. 31 year old male patient admitted on 12/21/16 for medically supervised withdrawals from heroin, methamphetamine, xanax, and occasional marijuana use. Pt has been compliant with 5 day Valium and 4 day Subutex taper. Taper has ended and pt is medically cleared for discharge/ Reports medical hx of Hepatitis C, anxiety and bipolar. Pt has had hx of psychosis. Pt refuses Thorazine, Dr. Cotto is aware. PRN Ibuprofen administered and effective. Most recent COWS are 3 and CIWA 3. Reports BM x1. Pt encouraged to go to groups. All needs met. Safety measures are in place, night nurse will continue to monitor.
--- NOTE | 2016-12-26 19:10 | NUR ---
Start of Shift Patient Received. Patient is in activities room participating in group meeting. Patient is a 31 year old male admitted on 12/21/16 for Opiate and Benzo Dependence under the care of Dr. Stockton. Patient is currently receiving a 5 day Ativan and 5 day Subutex taper. Patient verbalizes allergies to Haldol, wishes to be full code, following a regular diet, skin noted intact, placed on fall and seizure precautions. Past medical history noted as history of seizures 12/19/16, Migraine, heart attack 2012, Pancreatitis, hypothyroidism, depression, insomnia, melanoma, lymph node removal, epilepsy. Per endorsement, patient was given PRN Clonidine and Vistaril with medication noted to be effective. All needs attended to promptly. Will continue plan of care. Addendum: 12/27/16 at 0009 by ROSETTA SRIVASTAVA LVN ENTERED IN ERROR: WRONG PATIENT
--- NOTE | 2016-12-26 19:10 | NUR ---
Start of Shift Patient Received. Patient is in activities room participating in group meeting. Patient is a 31 year old male admitted on 12/21/16 for Opiate and Benzo Dependence under the care of Dr. Stockton. Patient is currently receiving a 5 day Ativan and 5 day Subutex taper. Patient verbalizes allergies to Haldol, wishes to be full code, following a regular diet, skin noted intact, placed on fall and seizure precautions. Past medical history noted as HEP C+, anxiety, Bipolar, Panic Disorder, psychosis, and Bilateral elbow fractures. Per endorsement, patient is set for discharge tomorrow 12/27/16 to home. Last noted COWS noted to be 3. All needs attended to promptly. Will continue plan of care as ordered.
[2016-12-27 00:11] LABS: *AMPHETAMINE, URINE NEGATIVE (NEGATIVE); *BARBITURATE, URINE NEGATIVE (NEGATIVE); *CANNABINOID, URINE NEGATIVE (NEGATIVE); *COCCAINE, URINE NEGATIVE (NEGATIVE); *OPIATE, URINE NEGATIVE (NEGATIVE); *PHENCYCLIDINE SCREEN,URINE NEGATIVE (NEGATIVE)
[2016-12-27 00:41] VITALS: BP 105/59
[2016-12-27 04:32] VITALS: BP 104/61
--- NOTE | 2016-12-27 07:01 | NUR ---
End of Shift Patient is in bed sleeping. Breathing even and non labored. No signs of pain or discomfort noted. Patient is a 31 year old male admitted on 12/21/16 for Opiate and Benzo Dependence. Patient has completed 5 day Ativan and 5 day Subutex taper. Allergies to Haldol, full code, regular diet, skin noted intact, placed on fall and seizure precautions. Past medical history noted as HEP C+, anxiety, Bipolar, Panic Disorder, psychosis, and Bilateral elbow fractures. Patient is set for discharge today 12/27/16 to home. Last noted COWS noted to be 7 and CIWA 6. All needs attended to promptly. Will endorse to continue plan of care as ordered.
--- NOTE | 2016-12-27 07:10 | NUR ---
Start of shift note SBAR report rcv'd. Pt was admitted for benzo and opiate dependence, methamphetamine and marijuana abuse. Pt has a PMHx of hep C, anxiety, bipolar disorder, panic disorder and seizures. Pt reports an allergy to Haldol, is a full code and on a regular diet. Pt has completed a 5 day valium and 4 day subutex taper. Pt is scheduled to be discharged home. However, pt states "I feel like I am still withdrawaling". Will notify Dr Stockton upon further assessment. All needs addressed at this time, pt states that he would like to sleep at this time. Will continue to monitor pt.
[2016-12-27 08:00] VITALS: BP 123/70
--- NOTE | 2016-12-27 08:15 | NUR ---
MD communication Pt stated "I don't feel that great and I have a lot of drugs at my house. I plan to get a friend/sober computer meteorologist to help me get rid of them appropriately." Educated pt that Dr Stockton wrote him a prescription for medications that will continue to help him feel better upon discharging, pt stated "What like gabapentin? I can just take the whole bottle". Dr Stockton notified, stated to shred that Rx that he wrote to prevent pt from potentially overdosing. Pt denies any SI/HI. Pt instructed to follow up with a PCP. Pt continues to refuse assistance to get into an appropriate treatment center, pt states that he wants to go home. Administration and Dr Stockton are aware. Pt states that he feels ready for discharge, and states he wants to remain sober.
[2016-12-27 08:26] VITALS: BP 120/73
[2016-12-27] MEDS: CLONIDINE HCL 0.1 MG TABLET PO SCH (08:26)
[2016-12-27] MEDS: chlorproMAZINE 25 MG TABLET PO SCH (08:26)
[2016-12-27] MEDS: BACLOFEN 20 MG TABLET PO SCH (08:26)
[2016-12-27] MEDS: GABAPENTIN 300 MG CAPSULE PO SCH (08:26)
[2016-12-27] MEDS: MULTIVITAMINS,THERAPEUTIC TABLET PO SCH (08:26)
--- NOTE | 2016-12-27 08:30 | NUR ---
Medication refusal Pt refused his thorazine. Pt states that he doesn't want to take it. Medication held.
--- NOTE | 2016-12-27 09:05 | NUR ---
Discharge note Pt was admitted for opiate, benzo and methamphetamine dependence. Pt had a COWS and CIWA of 3. VS are WNL. Pt states that he feels ready for discharge. LBM 12/27/16. Denies SI/HI. Pt verbalized his understanding of the discharge instructions. Pt discharge instructions, psychiatrist RX, medications and all belongings returned to pt. Pt ID band removed, pt ambulated off of unit with DAMAGE INSIDE ADJUSTER, left facility via private transportation for home.
== END 2016-12-27 09:05 | disposition home or self-care (01) | DRG 895 ==
LOC: SRC 12-21 00:16
PROVIDERS: ADMIT Internal Medicine; ATTEND Internal Medicine
PROC: HZ2ZZZZ Detoxification Services for Substance Abuse Treatment (ICD-10-PCS; principal; 2016-12-21)
PROC: HZ31ZZZ Individual Counseling for Substance Abuse Treatment, Behavioral (ICD-10-PCS; 2016-12-21)
PROC: HZ41ZZZ Group Counseling for Substance Abuse Treatment, Behavioral (ICD-10-PCS; 2016-12-25)
DX: F11.23 Opioid dependence with withdrawal (principal); E87.3 Alkalosis; F15.221 Other stimulant dependence with intoxication delirium; F31.64 Bipolar disorder, current episode mixed, severe, with psychotic features; F13.230 Sedative, hypnotic or anxiolytic dependence with withdrawal, uncomplicated; Z81.1 Family history of alcohol abuse and dependence; Z81.3 Family history of other psychoactive substance abuse and dependence; F41.9 Anxiety disorder, unspecified; F12.90 Cannabis use, unspecified, uncomplicated; E86.0 Dehydration; E83.42 Hypomagnesemia; F17.210 Nicotine dependence, cigarettes, uncomplicated; Z20.5 Contact with and (suspected) exposure to viral hepatitis; D64.9 Anemia, unspecified; Z79.899 Other long term (current) drug therapy
CPT/HCPCS: 36415; 70030-TC; 80307; 80324; 80349; 80361; 83735; 85025; 86580; 86592; 86705; 86803; 87340; 87806; Q0161